=== PATIENT | female | born 1965 | race Caucasian/White ===

== ENCOUNTER 2016-03-15 11:03 | Emergency (ER) | payer OTHER ==
[2016-03-15] MEDS ORDERED: IV NORMAL SALINE 1000ML BAG 1,000 ML IV SCH (11:33)
--- NOTE | 2016-03-15 11:38 | PHYS DOC ---
Past Medical History Past Medical History: Diverticulitis, Hypertension, Hypothyroid, Kidney Stone Past Surgical History: Hysterectomy Additional Past Surgical Histo: partial intestine resection Adult General Chief Complaint Chief Complaint: FLANK PAIN HPI HPI Patient is a 50 year old female who presents with left-sided abdominal pain. Patient reports past week she has been having sharp pain in her left upper quadrant and left lower quadrant that became worse yesterday. This is accompanied by nausea and vomiting. Pain is made worse by moving. She has taken some Excedrin at home for the pain with insufficient relief. She also reports fever to 101 at home. She had been constipated, but now having more regular bowel movements. No diarrhea or bloody stool. Review of Systems Review of Systems Constitutional: Fever Eyes: Denies change in visual acuity or eye pain HENT: Denies nasal congestion or sore throat Respiratory: Denies cough or shortness of breath Cardiovascular: Denies chest pain GI: L side abdominal pain, nausea, vomiting. Denies bloody stools or diarrhea : Denies dysuria or hematuria Musculoskeletal: Denies back pain or joint pain Integument: Denies rash or skin lesions Neurologic: Denies headache, focal weakness or sensory changes Current Medications Current Medications Current Medications Medications (Trade) Dose Ordered Sig/Olivier Start Time Stop Time Status Last Admin Dose Admin Ciprofloxacin Lactate 200 ml @ 200 mls/hr 1X ONCE 03/15/16 13:15 03/15/16 14:14 DC 03/15/16 13:31 200 MLS/HR Iohexol (Omnipaque 300 Mg/ml) 60 ml 1X ONCE 03/15/16 12:15 03/15/16 12:16 DC 03/15/16 12:45 60 ML Metronidazole (FLAGYL 500Mmg PREMIX) 100 ml @ 100 mls/hr 1X ONCE 03/15/16 13:15 03/15/16 14:14 DC 03/15/16 13:51 100 MLS/HR Morphine Sulfate 4 mg 4 mg 1X ONCE 03/15/16 13:00 03/15/16 13:01 DC 03/15/16 12:59 4 MG Ondansetron HCl (Zofran) 4 mg 1X ONCE 03/15/16 11:45 03/15/16 11:51 DC 03/15/16 11:58 4 MG Oxycodone/ Acetaminophen (Percocet 5/325) 2 tab 1X ONCE 03/15/16 14:15 03/15/16 14:16 DC 03/15/16 14:39 2 TAB Sodium Chloride (Iv Sodium Chloride 0.9% 1000ml Bag) 1,000 ml @ 1,000 mls/hr Q1H 03/15/16 11:33 03/15/16 12:32 DC 03/15/16 11:56 1,000 MLS/HR Allergies Allergies Allergies Coded Allergies Type Severity Reaction Last Updated Verified No Known Drug Allergies 03/15/16 No Physical Exam Physical Exam Constitutional: Well developed, well nourished, no acute distress, non-toxic appearance HENT: Normocephalic, atraumatic, bilateral external ears normal Eyes: EOMI, conjunctiva normal, no discharge Neck: Normal range of motion, no stridor Cardiovascular: Heart rate normal, regular rhythm, no murmur Lungs & Thorax: Bilateral breath sounds clear to auscultation Abdomen: Bowel sounds normal, soft, non-distended, LUQ/LLQ TTP without guarding or rebound Skin: Warm, dry, no erythema, no rash Extremities: No obvious deformity, no edema Neurologic: Alert and oriented X 3, no gross deficits noted Current Patient Data Vital Signs Vital Signs Date Time Temp Pulse Resp B/P Pulse Ox O2 Delivery O2 Flow Rate FiO2 03/15/16 14:41 102/58 03/15/16 14:39 13 03/15/16 13:30 71 94 03/15/16 12:06 98.6 Room Air 98.6 Lab Values Laboratory Tests Test 03/15/16 11:08 03/15/16 11:45 Urine Collection Type Unknown Urine Color [place] Urine Clarity Cloudy Urine pH 5.5 Urine Specific [place] >=1.030 Urine Protein Negativemg/dL (NEG-TRACE) Urine Glucose (UA) Negativemg/dL (NEG) Urine Ketones (Stick) Tracemg/dL (NEG) Urine Blood Negative (NEG) Urine Nitrite Positive (NEG) Urine Bilirubin Small (NEG) Urine Urobilinogen Dipstick 1.0mg/dL (0.2 mg/dL) Urine Leukocyte Esterase Moderate (NEG) Urine RBC 1-2/HPF (0-2) Urine WBC 1-4/HPF (0-4) Urine Squamous Epithelial Cells Few/LPF Urine Bacteria Moderate/HPF (0-FEW) Urine Hyaline Casts Few/HPF Urine Mucus Mod/LPF White Blood Count 11.7x10^3/uL (4.0-11.0) H Red Blood Count 4.49x10^6/uL (3.50-5.40) Hemoglobin 13.5g/dL (12.0-15.5) Hematocrit 39.6% (36.0-47.0) Mean Corpuscular Volume 88fL (79-100) Mean Corpuscular Hemoglobin 30pg (25-35) Mean Corpuscular Hemoglobin Concent 34g/dL (31-37) Red Cell Distribution Width 14.5% (11.5-14.5) Platelet Count 142x10^3/uL (140-400) Neutrophils (%) (Auto) 82% (31-73) H Lymphocytes (%) (Auto) 12% (24-48) L Monocytes (%) (Auto) 5% (0-9) Eosinophils (%) (Auto) 1% (0-3) Basophils (%) (Auto) 1% (0-3) Neutrophils # (Auto) 9.6x10^3uL (1.8-7.7) H Lymphocytes # (Auto) 1.4x10^3/uL (1.0-4.8) Monocytes # (Auto) 0.6x10^3/uL (0.0-1.1) Eosinophils # (Auto) 0.1x10^3/uL (0.0-0.7) Basophils # (Auto) 0.1x10^3/uL (0.0-0.2) Sodium Level 142mmol/L (136-145) Potassium Level 3.7mmol/L (3.5-5.1) Chloride Level 103mmol/L (98-107) Carbon Dioxide Level 27mmol/L (21-32) Anion Gap 12 (6-14) Blood Urea Nitrogen 19mg/dL (7-20) Creatinine 1.1mg/dL (0.6-1.0) H Estimated GFR (Cockcroft-Gault) 52.4 BUN/Creatinine Ratio 17 (6-20) Glucose Level 103mg/dL (70-99) H Calcium Level 8.9mg/dL (8.5-10.1) Total Bilirubin 2.6mg/dL (0.2-1.0) H Aspartate Amino Transferase (AST) 45U/L (15-37) H Alanine Aminotransferase (ALT) 48U/L (14-59) Alkaline Phosphatase 76U/L (46-116) Total Protein 6.7g/dL (6.4-8.2) Albumin 3.4g/dL (3.4-5.0) Albumin/Globulin Ratio 1.0 (1.0-1.7) Lipase 94U/L (73-393) Laboratory Tests 03/15/16 11:45 Laboratory Tests 03/15/16 11:45 EKG EKG [] Radiology/Procedures Radiology/Procedures CT A/P: IMPRESSION: Moderate mural thickening and paracolic inflammation at the descending colon level most likely representing acute diverticulitis. Ischemia, inflammatory bowel disease or a neoplastic etiology are less likely. Course & Med Decision Making Course & Med Decision Making Pertinent Labs and Imaging studies reviewed. (See chart for details) Patient is 50-year-old female presents with left-sided abdominal pain, nausea/ vomiting, fever. Differential includes diverticulitis, kidney stone. Labs, UA, CT abdomen/pelvis ordered to evaluate. IV fluids, pain medication, nausea medication ordered for patient comfort. Labs notable for slight leukocytosis, elevated bilirubin. CT results as above, consistent with acute diverticulitis. No evidence or perforation per radiologist read. UA indicative of infection, unsure if this is actual UTI or related to bowel inflammation adjacent ureter. Regardless, will treat with Cipro and Flagyl which would cover both diverticulitis and possible UTI. I discussed results with patient, who is feeling much better at this time. I discussed option of inpatient management versus outpatient trial. Patient would like to go home at this time. As such, I will discharge her with prescriptions for Cipro, Flagyl, Percocet, Zofran. Discussed liquid diet with patient. She already has appointment scheduled with PCP for Saturday. I gave her strict return precautions, discussed that if her symptoms worsened or she was unable to tolerate PO that she should immediately come back to the emergency department for admission. Patient agrees to be stipulations. Patient discharged home with instructions for follow-up and strict return precautions. Dragon Disclaimer Dragon Disclaimer This electronic medical record was generated, in whole or in part, using a voice recognition dictation system. Departure Departure Impression: Primary Impression: Diverticulitis Disposition: HOME, SELF-CARE Condition: STABLE Referrals: KATE QUINTERO APRN (PCP) Patient Instructions: Diverticulitis Additional Instructions: Thank you for allowing us to provide care today in the Emergency Department. Take the provided medication as directed. Use caution after taking the pain medication as it can make you drowsy. Be sure to take the full course of antibiotics. You should be only taking a liquid diet until you see your primary care physician. Schedule a follow up appointment with your primary care doctor as soon as possible. Return promptly to the Emergency Department if you develop any new or concerning symptoms. Scripts Ondansetron (Zofran Odt)4 Mg Tab.rapdis1 Tab SL Q8HRS PRN katrina #15 TAB Prov:FRANKIE FERRELL MD 03/15/16 Oxycodone/Apap 5-325 (Percocet 5-325 Mg Tablet)1 Each Tablet1 Tab PO PRN Q6HRS PRN PAIN #25 TAB Ref 0 Prov:FRANKIE FERRELL MD 03/15/16 Metronidazole (Flagyl)500 Mg Tablet1 Tab PO BID #20 TAB Prov:FRANKIE FERRELL MD 03/15/16 Ciprofloxacin Hcl (Cipro)500 Mg Tablet1 Tab PO BID #20 TAB Prov:FRANKIE FERRELL MD 03/15/16 FRANKIE FERRELL MD Mar 15, 2016 11:38
[2016-03-15] MEDS ORDERED: MORPHINE SULFATE 4 MG/ML DISP.SYRIN. IV ONE ×2 (11:45→13:00)
[2016-03-15] MEDS ORDERED: ONDANSETRON PF 4 MG/2 ML VIAL. IV ONE (11:45)
[2016-03-15 11:54] LABS: BASO # 0.1 x10^3/uL (0.0-0.2); BASO % 1 % (0-3); EOS % 1 % (0-3); HEMATOCRIT 39.6 % (36.0-47.0); HEMOGLOBIN 13.5 g/dL (12.0-15.5); LYMPH # 1.4 x10^3/uL (1.0-4.8); LYMPH % 12 % (24-48); MEAN CORPUSCULAR HEMOGLOBIN 30 pg (25-35); MEAN CORPUSCULAR HGB CONC 34 g/dL (31-37); MEAN CORPUSCULAR VOLUME 88 fL (79-100); MONO % 5 % (0-9); NEUT % 82 % (31-73); PLATELET COUNT 142 x10^3/uL (140-400); RED BLOOD COUNT 4.49 x10^6/uL (3.50-5.40); RED CELL DISTRIBUTION WIDTH 14.5 % (11.5-14.5); WHITE BLOOD COUNT 11.7 x10^3/uL (4.0-11.0)
[2016-03-15 11:56] LABS: BILIRUBIN,URINE SMALL (NEG); GLUCOSE,URINE NEGATIVE (NEG); NITRITE,URINE POSITIVE (NEG); PH,URINE 5.5; PROTEIN,URINE NEGATIVE (NEG-TRACE)
[2016-03-15 12:03] LABS: CALCIUM 8.9 mg/dL (8.5-10.1); CREATININE 1.1 mg/dL (0.6-1.0); GFR 52.4; POTASSIUM 3.7 mmol/L (3.5-5.1)
[2016-03-15 12:08] LABS: ALBUMIN 3.4 g/dL (3.4-5.0); TOTAL BILIRUBIN 2.6 mg/dL (0.2-1.0); TOTAL PROTEIN 6.7 g/dL (6.4-8.2)
[2016-03-15 12:10] LABS: BACTERIA,URINE MODERATE /HPF (0-FEW); SQUAMOUS EPITHELIAL CELL,UR FEW /LPF
[2016-03-15] MEDS ORDERED: IOHEXOL 300 MG/ML 100ML VIAL. IV ONE (12:15)
--- NOTE | 2016-03-15 13:07 | RAD ---
CT of the abdomen and pelvis with contrast, 03/15/2016: History: Left-sided abdominal pain Multidetector CT imaging was performed following an IV bolus injection of iodinated contrast material. No oral contrast material was administered for this exam. There is mild linear atelectasis and/or scarring in the lung bases. The gallbladder is surgically absent. No hepatic abnormality is seen. The pancreas is unremarkable. The spleen is of normal size. The kidneys show no intrinsic abnormality. The abdominal aorta is of normal caliber. No abdominal or pelvic adenopathy is seen. There are surgical sutures related to the proximal sigmoid colon. There is mural thickening involving the descending colon with moderate streaky paracolic inflammation at this level. There are several small diverticula through this region. The inflammation extends into the left anterior pararenal and perinephric spaces. Minimal inflammation extends superiorly adjacent to the pancreatic tail. No discrete paracolic abscess is identified. There is no evidence of colonic obstruction. The small bowel loops are unremarkable. No free air is identified in the abdomen or pelvis. IMPRESSION: Moderate mural thickening and paracolic inflammation at the descending colon level most likely representing acute diverticulitis. Ischemia, inflammatory bowel disease or a neoplastic etiology are less likely.
[2016-03-15] MEDS ORDERED: CIPROFLOXACIN 400MG PREMIX 200 ML IV ONE (13:15)
[2016-03-15] MEDS ORDERED: METRONIDAZOLE 500mg PREMIX 100 ML IV ONE (13:15)
[2016-03-15] MEDS ORDERED: OXYCODONE/APAP 5/325 TABLET. PO ONE (14:15)
[2016-03-15 14:41] VITALS: BP 102/58
[2016-03-15] MEDS ORDERED: METR500T PO (14:43)
[2016-03-15] MEDS ORDERED: OXYC-323 PO (14:43)
[2016-03-15] MEDS ORDERED: CIPR500T94 PO (14:43)
[2016-03-15] MEDS ORDERED: ONDA4TAB10 SL (14:43)
== END 2016-03-15 15:15 | disposition home or self-care (01) ==
LOC: ER 11:03
DX: K57.92 Diverticulitis of intestine, part unspecified, without perforation or abscess without bleeding (principal); R50.9 Fever, unspecified; I10 Essential (primary) hypertension; E03.9 Hypothyroidism, unspecified; Z87.442 Personal history of urinary calculi; Z90.710 Acquired absence of both cervix and uterus
CPT/HCPCS: 36415; 74177; 80053; 81001; 83690; 85027; 87086; 96361; 96365; 96366; 96368; 96375; 99285; J0744; J2270; J2405; J3490; J7030; Q9967

== ENCOUNTER 2016-05-12 01:11 | Emergency (ER) | payer OTHER ==
[~2016-05-12] VITALS: Ht 157.5 cm; Wt 81.6 kg
[~2016-05-12 01:11] MED LIST: CIPR500T94 PO; METR500T PO; ONDA4TAB10 SL; OXYC-323 PO
[2016-05-12 01:27] VITALS: BP 188/95
[2016-05-12] MEDS ORDERED: ONDANSETRON ODT 4 MG TAB.RAPDIS PO ONE (02:00)
[2016-05-12] MEDS ORDERED: HYDROMORPHONE 2 MG/ML VIAL. IM ONE (02:00)
[2016-05-12] MEDS ORDERED: CYCLOBENZAPRINE 10 MG TABLET. PO ONE (02:00)
[2016-05-12] MEDS ORDERED: KETOROLAC TROMETHAMINE 60 MG/2 ML SYRINGE. IM ONE (02:00)
[2016-05-12] MEDS ORDERED: CYCL10TA2 PO (02:04)
[2016-05-12] MEDS ORDERED: HYDR-2678 PO (02:04)
--- NOTE | 2016-05-12 02:04 | PHYS DOC ---
Past Medical History Past Medical History: Depression, Diverticulitis, Hypertension, Hypothyroid, Kidney Stone Additional Past Medical Histor: CHRONIC BACK PAIN Past Surgical History: Appendectomy, Cholecystectomy, Hysterectomy Additional Past Surgical Histo: partial intestine resection Alcohol Use: Occasionally Drug Use: None Adult General Chief Complaint Chief Complaint: BACK PAIN - NO INJURY HPI HPI Patient is a 50 year old female who presents to the ER today complaining of lower back pain. Patient reports that she has lower back pain all the time however tonight it started getting worse. According to the he believe that her back pain started to get worse on and has been progressing over the last couple days. Patient reports that she has a history of hypertension. Has had her gallbladder and hysterectomy. She does not smoke or drink. She is not allergic to any medications. Patient denies any fevers shakes chills nausea vomiting diarrhea. Patient denies any weakness to her upper or lower semis. Patient has a loss of bowel or bladder function. Patient reports she normally takes meloxicam however it hasn't been helping very much today. Patient reports that this isn't having pain that she normally has symptoms worse today and is not being relieved with her typical pain medicines. Patient's physical exam is remarkable for tenderness to palpation to her lower back around the L4-L5 region. Patient's neuro exam is nonfocal. Patient is 5 out of 5 upper and lower strength. Sensation is intact. Normal gait. Patient has no point bony C-spine T-spine or L-spine tenderness to palpation. Patient has no retroperitoneal signs. Patient does not present as someone who has kidney stones. In the ER patient was given a shot of Toradol, Dilaudid, by mouth Flexeril and Zofran to assist with her pain. Patient had an x-ray of her lower back which did not show any acute pathology. /P 50-year-old female with lower back pain. This is an acute exacerbation of her chronic back pain. Patient was treated with pain medicines here will be discharged home with Flexeril and Lortab to assist her until she is able see her family doctor to assist her further with her pain. I did discuss with the patient that she likely will need an MRI as an outpatient to further delineate the cause of her pain. Review of Systems Review of Systems Constitutional: Denies fever or chills [] Eyes: Denies change in visual acuity, redness, or eye pain [] HENT: Denies nasal congestion or sore throat [] All other review systems are negative except as documented in the history of present illness portion. Current Medications Current Medications Current Medications Medications (Trade) Dose Ordered Sig/Olivier Start Time Stop Time Status Last Admin Dose Admin Cyclobenzaprine HCl (Flexeril) 10 mg 1X ONCE 05/12/16 02:00 05/12/16 02:01 Hydromorphone HCl (Dilaudid) 1 mg 1X ONCE 05/12/16 02:00 05/12/16 02:01 Ketorolac Tromethamine (Toradol Im) 60 mg 1X ONCE 05/12/16 02:00 05/12/16 02:01 Ondansetron HCl (Zofran Odt) 4 mg 1X ONCE 05/12/16 02:00 05/12/16 02:01 Allergies Allergies Allergies Coded Allergies Type Severity Reaction Last Updated Verified No Known Drug Allergies 03/15/16 No Physical Exam Physical Exam Constitutional: Well developed, well nourished, no acute distress, non-toxic appearance. [] HENT: Normocephalic, atraumatic, bilateral external ears normal, oropharynx moist, no oral exudates, nose normal. [] Eyes: PERRLA, EOMI, conjunctiva normal, no discharge. [] Neck: Normal range of motion, no tenderness, supple, no stridor. [] Cardiovascular:Heart rate regular rhythm, no murmur [] Lungs & Thorax: Bilateral breath sounds clear to auscultation [] Abdomen: Bowel sounds normal, soft, no tenderness, no masses, no pulsatile masses. [] Skin: Warm, dry, no erythema, no rash. [] Back: No tenderness, no CVA tenderness. [] Extremities: No tenderness, no cyanosis, no clubbing, ROM intact, no edema. [] Neurologic: Alert and oriented X 3, normal motor function, normal sensory function, no focal deficits noted. [] Psychologic: Affect normal, judgement normal, mood normal. [] Current Patient Data Vital Signs Vital Signs Date Time Temp Pulse Resp B/P Pulse Ox O2 Delivery O2 Flow Rate FiO2 05/12/16 01:27 98.7 67 16 188/95 97 Room Air 98.7 EKG EKG [] Radiology/Procedures Radiology/Procedures [] Course & Med Decision Making Course & Med Decision Making Pertinent Labs and Imaging studies reviewed. (See chart for details) [] Dragon Disclaimer Dragon Disclaimer This electronic medical record was generated, in whole or in part, using a voice recognition dictation system. Departure Departure Impression: Primary Impression: Low back pain, non-specific Disposition: 01 HOME, SELF-CARE Condition: IMPROVED Referrals: KATE QUINTERO APRN (PCP) Patient Instructions: Back Pain, Adult Scripts Hydrocodone/Acetaminophen (Lortab 5-325 mg Tablet)1 Each Tablet1 Tab PO PRN Q6HRS PRN PAIN #14 TAB Prov:LEATHA STARK MD 05/12/16 Cyclobenzaprine Hcl 10 Mg [id number] Mg PO TID PRN MUSCLE PAIN #20 TAB Prov:LEATHA STARK MD 05/12/16 LEATHA STARK MD May 12, 2016 02:04
--- NOTE | 2016-05-12 08:02 | RAD ---
Examination: 3 views of the lumbar spine History: History of low back pain Comparison: None available Findings: The vertebral body heights are maintained. No significant listhesis identified. The facets appear to well aligned. Mild facet hypertrophic changes identified likely due to degeneration. Mild multilevel degenerative disease. Impression: Mild multilevel degenerative disease.
== END 2016-05-12 02:10 | disposition home or self-care (01) ==
LOC: ER 01:11
DX: M54.5 Low back pain (principal); G89.29 Other chronic pain; I10 Essential (primary) hypertension; E03.9 Hypothyroidism, unspecified; Z87.442 Personal history of urinary calculi; Z90.710 Acquired absence of both cervix and uterus; Z90.49 Acquired absence of other specified parts of digestive tract; Z98.890 Other specified postprocedural states
CPT/HCPCS: 72100; 96372; 99284; J1170; J1885; Q0162